=== PATIENT | female | born 1965 | race Caucasian/White ===

== ENCOUNTER 2018-08-20 08:54 | Emergency (ER) | payer OTHER, MEDICAID, MEDICARE ==
[2018-08-20] MEDS: IBUPROFEN 800 MG TAB PO (10:13)
[2018-08-20] MEDS: ALPRAZOLAM 1 MG TAB PO (11:47)
== END 2018-08-20 11:47 | disposition home or self-care (01) ==
LOC: E/R 08:54
DX: M79.602 Pain in left arm (principal)
CPT/HCPCS: 93971; 99284-25